=== PATIENT | female | born 1995 | race Caucasian/White ===

== ENCOUNTER 2016-11-20 15:59 | Emergency (ER) | payer MEDICAID ==
--- NOTE | 2016-11-20 18:20 | ERPHSYRPT ---
- History of Present Illness Time Seen by Provider: 11/20/16 18:00 Source: patient, family, old records Patient Subjective Stated Complaint: PT STATES SHE WAS SEEN AT THIS HOSPITAL ON 11/18/16 AND TREATED FOR ABDOMINAL PAIN AND SENT HOME WITH JOSEPH, WHICH SHE SAYS SHE HAS RAN OUT. PT STATES "I WAS KICKED OUT OF [facility] TODAY, BECAUSE I AM ALLERGIC TO REGLAN AND NSAIDS". PT STATES [facility] DID A PELVIC EXAM TODAY AND TOLD HER HER IUD WAS IN THE CORRECT PLACE. PT STATES SHE IS HAVING PAIN FROM HER IUD. PT STATES I DO NOT WANT [facility] TO KNOW I WAS HERE SO PLEASE DO NOT CALL AND GET MY RECORDS. PT STATES " I HAVE NOT SLEPT OR ATE FOR 24 HOURS." Triage Nursing Assessment: PT PINK,WARM, DRY. PT SOBBING. ABDOMEN OBESE. ABDOMEN SOFT TENDER OR PELVIS. STATES SHE IS CHANGING A PAD EVERY 2 HOURS. PT CRYING WET TEARS. MUCUS MEMBRANES MOIST. Physician History: C/O vaginal bleeding and recent UTI after IUD inserted 2 weeks ago. Out of pain meds and wants more. Pt. wants us to remove IUD, which I have told her is inappropriate and must be F/U with [employer]. Timing/Duration: week(s) (2) Activites at Onset: none Quality: cramping Onset Location: pelvic pain Pain Radiation: none Severity of Pain-Max: severe Severity of Pain-Current: severe Prior abdominal problems: similar symptoms Sexual intercourse history: non-contributory Modifying Factors: Improves With: other (IUD ) Associated Symptoms: vomiting Allergies/Adverse Reactions: metoclopramide [From Reglan] Allergy (Verified 11/20/16 17:29) Vomiting NSAIDS (Non-Steroidal Anti-Inflamma Allergy (Verified 11/20/16 17:29) anaphylaxis tramadol Allergy (Verified 11/20/16 17:29) seizures Hx Tetanus, Diphtheria Vaccination/Date Given: Yes (UP TO DATE) Hx Influenza Vaccination/Date Given: No Hx Pneumococcal Vaccination/Date Given: No - Review of Systems Constitutional: No Symptoms Eyes: No Symptoms Ears, Nose, & Throat: No Symptoms Respiratory: No Symptoms Cardiac: No Symptoms Abdominal/Gastrointestinal: Abdominal Pain, Vomiting Genitourinary Symptoms: Vaginal Bleeding Musculoskeletal: No Symptoms Skin: No Symptoms Neurological: No Symptoms Psychological: No Symptoms Endocrine: No Symptoms Hematologic/Lymphatic: No Symptoms Immunological/Allergic: No Symptoms - Past Medical History Pertinent Past Medical History: Yes Psycho-Social History: Other Female Reproductive Disorders: Endometriosis 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, PTSD - Past Surgical History Past Surgical History: Yes Gastrointestinal: Appendectomy Other Surgical History: laparoscopy x 4 for 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 - Social History Smoking Status: Never smoker Exposure to second hand smoke: No Drug Use: none Patient Lives Alone: No - Female History Hx Last Menstrual Period: NOW - Nursing Vital Signs Nursing Vital Signs: Initial Vital Signs Temperature 98.1 F Temperature Source Oral Pulse Rate 73 Respiratory Rate 18 Blood Pressure 116/70 Pain Intensity 10 - Physical Exam General Appearance: moderate distress Eye Exam: eyes nml inspection, other (tearful) Ears, Nose, Throat Exam: normal ENT inspection, pharynx normal Neck Exam: normal inspection, non-tender, supple, full range of motion Respiratory Exam: normal breath sounds, lungs clear Cardiovascular Exam: regular rate/rhythm, normal heart sounds, normal peripheral pulses Gastrointestinal/Abdomen Exam: soft, normal bowel sounds Back Exam: normal inspection Extremity Exam: normal inspection, normal range of motion, pelvis stable Neurologic Exam: alert, oriented x 3, depressed mood/affect Skin Exam: normal color, warm, dry SpO2 Interpretation: normal SpO2: 97 Oxygen Delivery: Room Air - Course Nursing assessment & vital signs reviewed: Yes Ordered Tests: Active Orders 24 hr Category Date Time Status IV Insertion STAT Care 11/20/16 17:36 Active CBC W DIFF Stat Lab 11/20/16 18:00 Completed CMP Stat Lab 11/20/16 18:00 Completed HCG,QUALITATIVE URINE Stat Lab 11/20/16 18:38 Completed UA W/RFX UR CULTURE Stat Lab 11/20/16 18:38 Received Medication Summary Discontinued Medications Generic Name Dose Route Start Last Admin Trade Name Jhonatan PRN Reason Stop Dose Admin Hydromorphone HCl 0.5 mg 11/20/16 18:30 11/20/16 18:37 Dilaudid 1 Mg/Ml Injection SQ 11/20/16 18:31 0.5 mg STAT ONE Administration Hydromorphone HCl Confirm 11/20/16 18:35 Dilaudid 1 Mg/Ml Injection Administered 11/20/16 18:36 Dose 1 mg .ROUTE .STK-MED ONE Ondansetron HCl 4 mg 11/20/16 18:53 Zofran 4 Mg/2 Ml Vial IV 11/20/16 18:54 STAT ONE Lab/Rad Data: Laboratory Result Diagrams 11/20/16 18:00 11/20/16 18:00 Laboratory Results 11/20/16 11/20/16 11/20/16 Range/Units 18:38 18:00 18:00 WBC 7.1 (4.0-10.5) K/mm3 RBC 4.57 (4.1-5.4) M/mm3 Hgb 13.2 (12.0-16.0) gm/dl Hct 41.3 (35-47) % MCV 90.4 (78-100) fl MCH 28.9 (26-32) pg MCHC 32.0 (32-36) g/dl RDW 13.5 (11.5-14.0) % Plt Count 407 (150-450) K/mm3 MPV 10.2 H (6-9.5) fl Gran % 66.8 H (36.0-66.0) % Lymphocytes % 20.9 L (24.0-44.0) % Monocytes % 12.1 H (0.0-12.0) % Eosinophils % 0.1 (0.00-5.0) % Basophils % 0.1 (0.0-0.4) % Basophils # 0.01 (0-0.4) Sodium 140 (136-145) mEq/L Potassium 4.1 (3.5-5.1) mEq/L Chloride 104 (98-107) mEq/L Carbon Dioxide 22.6 (21-32) mEq/L Anion Gap 17.9 H (5-15) MEQ/L BUN 10 (9-20) mg/dL Creatinine 0.81 (0.55-1.30) mg/dl Estimated GFR > 60 ML/MIN Glucose 97 (70-110) MG/DL Calcium 9.4 (8.5-10.1) mg/dL Total Bilirubin 0.3 (0.2-1.0) mg/dL AST 24 (15-37) U/L ALT 48 (12-78) U/L Alkaline Phosphatase 88 (46-116) U/L Serum Total Protein 8.8 H (6.4-8.2) gm/dL Albumin 4.3 (3.4-5.0) g/dL Urine HCG, Qual NEGATIVE (Negative) - Progress Progress: improved Air Movement: good Blood Culture(s) Obtained: No Antibiotics given: No Counseled pt/family regarding: diagnosis, need for follow-up (with [employer] for IUD removal and further pain medicines. ) - Departure Time of Disposition: 18:30 Departure Disposition: Home Clinical Impression: Pelvic pain, Dysmenorrhea Condition: Stable Critical Care Time: No Referrals: DOCTOR,NO FAMILY [Primary Care Provider] -
[2016-11-20 18:22] LABS: BASOPHIL % 0.1 % (0.0-0.4); Eosinophil % 0.1 % (0.00-5.0); Granulocytes % 66.8 % (36.0-66.0); Lymphocytes % 20.9 % (24.0-44.0); Mean Cell Volume 90.4 fl (78-100); Mean Corpuscular Hemoglobin 28.9 pg (26-32); Mean Platelet Volume 10.2 fl (6-9.5); Monocytes % 12.1 % (0.0-12.0); Platelet Count 407 K/mm3 (150-450); Red Blood Count 4.57 M/mm3 (4.1-5.4); Red Cell Distribution Width 13.5 % (11.5-14.0); White Blood Count 7.1 K/mm3 (4.0-10.5)
[2016-11-20] MEDS ORDERED: DILAUDID 1 MG/ML INJECTION SQ ONE (18:30)
[2016-11-20 18:34] VITALS: PULSE 73
[2016-11-20] MEDS ORDERED: DILAUDID 1 MG/ML INJECTION ONE (18:35)
[2016-11-20 18:42] LABS: ALBUMIN 4.3 g/dL (3.4-5.0); ALKALINE PHOSPHATASE 88 U/L (46-116); ANION GAP 17.9 MEQ/L (5-15); BILIRUBIN,TOTAL 0.3 mg/dL (0.2-1.0); BLOOD UREA NITROGEN 10 mg/dL (9-20); CHLORIDE 104 mEq/L (98-107); Carbon Dioxide 22.6 mEq/L (21-32); Glucose 97 MG/DL (70-110); Potassium 4.1 mEq/L (3.5-5.1); SGOT/AST 24 U/L (15-37); SGPT/ALT 48 U/L (12-78); SODIUM 140 mEq/L (136-145); Total Protein 8.8 gm/dL (6.4-8.2)
[2016-11-20] MEDS ORDERED: Zofran 4 MG/2 ML VIAL IV ONE (18:53)
[2016-11-20] MEDS ORDERED: Zofran 4 MG/2 ML VIAL ONE (18:56)
[2016-11-20 19:03] LABS: Collection Type CATH
[2016-11-20 19:04] LABS: Bacteria FEW /HPF (NEGATIVE); COMPLETE URINE MICROSCOPIC? YES; Epithelial Cells MODERATE /HPF (FEW); Ph 5.5 (5-6); WBC 0-2 /HPF (0-5)
[2016-11-20 19:06] LABS: ADD URINE CULTURE? YES (NO)
[2016-11-20 19:13] VITALS: BP 119/70; O2SAT 100
== END 2016-11-20 19:13 | disposition home or self-care (01) ==
LOC: ED 15:59
DX: R10.2 Pelvic and perineal pain (principal); N94.6 Dysmenorrhea, unspecified
CPT/HCPCS: 36000; 36415; 80053; 81000; 84703; 85025; 87086; 96372; 96374; 99283; J1170; J2405; P9612

== ENCOUNTER 2016-11-28 22:33 | Emergency (ER) | payer MEDICAID ==
[2016-11-28] MEDS ORDERED: Zofran 4 MG/2 ML VIAL IV ONE (23:19)
[2016-11-28] MEDS ORDERED: Sodium Chloride 0.9% 1000 ML 1,000 ML IV STA (23:19)
--- NOTE | 2016-11-28 23:28 | ERPHSYRPT ---
- History of Present Illness Time Seen by Provider: 11/28/16 23:10 Source: patient Exam Limitations: clinical condition Patient Subjective Stated Complaint: pt has abd pain and vomiting 4-5 times today -co vag bleeding changing pads 5-6 today -pt states she had a laparoscopy and mirena placed on nov 08 and it caused her pain and bleeding until it was removed saturday -pt was driving to hospital but had to stop and call the ambulance because she was lightheaded -she had norco but it doesn't control pain and make her sick. 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 PATIENT HAD MIRENA INSERTION NOV 08, 2016, DEVELOPED ABDOMINAL PAIN WITH VAGINAL BLEEDING DAILY. PATIENT EVALUATED AT [facility] Oct2015. AND Nov2016. EVALUATED HERE AT [facility] Oct, Nov. Timing/Duration: week(s) Activites at Onset: none Quality: stabbing Onset Location: suprapubic, pelvic pain Pain Radiation: none Severity of Pain-Max: severe Severity of Pain-Current: severe Prior abdominal problems: similar symptoms (HISTORY OF ENDOMETRIOSIS) Modifying Factors: Improves With: movement Associated Symptoms: abdominal pain Allergies/Adverse Reactions: metoclopramide [From Reglan] Allergy (Verified 11/28/16 23:12) Vomiting NSAIDS (Non-Steroidal Anti-Inflamma Allergy (Verified 11/28/16 23:12) anaphylaxis tramadol Allergy (Verified 11/28/16 23:12) seizures Hx Tetanus, Diphtheria Vaccination/Date Given: Yes (UP TO DATE) Hx Influenza Vaccination/Date Given: Yes Hx Pneumococcal Vaccination/Date Given: No - Review of Systems Constitutional: No Fever, No Chills Eyes: No Symptoms Ears, Nose, & Throat: No Symptoms Respiratory: No Symptoms, No Cough, No Dyspnea Cardiac: No Symptoms, No Chest Pain, No Edema, No Syncope Abdominal/Gastrointestinal: No Abdominal Pain, No Nausea, No Vomiting, No Diarrhea Genitourinary Symptoms: Vaginal Bleeding, No Dysuria Musculoskeletal: No Back Pain, No Neck Pain Skin: No Rash Neurological: No Dizziness, No Focal Weakness, No Sensory Changes Psychological: No Symptoms Endocrine: No Symptoms All Other Systems: Reviewed and Negative - Past Medical History Pertinent Past Medical History: Yes Psycho-Social History: Other Female Reproductive Disorders: Endometriosis 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, 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 with leslie gonzales 06/20/2016 - Past Surgical History Past Surgical History: Yes Gastrointestinal: Appendectomy Other Surgical History: laparoscopy x 4 for 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 last one nov 08 - Social History Smoking Status: Never smoker Exposure to second hand smoke: No Drug Use: none Patient Lives Alone: No - Female History Hx Last Menstrual Period: present - Nursing Vital Signs Nursing Vital Signs: Initial Vital Signs Temperature 98.8 F Temperature Source Oral Pulse Rate 80 Respiratory Rate 16 Blood Pressure 140/90 Pain Intensity 8 - Physical Exam General Appearance: no apparent distress, alert Eye Exam: PERRL/EOMI, eyes nml inspection Ears, Nose, Throat Exam: normal ENT inspection, TMs normal, pharynx normal, moist mucous membranes Neck Exam: normal inspection, non-tender, supple, full range of motion Respiratory Exam: normal breath sounds, lungs clear, No respiratory distress Cardiovascular Exam: regular rate/rhythm, normal heart sounds, normal peripheral pulses Gastrointestinal/Abdomen Exam: soft, normal bowel sounds, tenderness ( SUPRAPUBIC TENDERNESS), No mass Pelvic Exam: normal external exam, cervical motion tenderness (NO ACTIVE BLEEDING IN VAGINAL VAULT, MINIMAL ADNEXAL TENDERNESS) Back Exam: normal inspection, normal range of motion, No CVA tenderness, No vertebral tenderness Extremity Exam: normal inspection, normal range of motion, pelvis stable Neurologic Exam: alert, oriented x 3, cooperative, patroller II-XII nml as tested, normal mood/affect, sensation nml, No motor deficits Skin Exam: normal color, warm, dry Lymphatic Exam: No adenopathy SpO2 Interpretation: normal SpO2: 100 Oxygen Delivery: Room Air - CT Exams Abdomen/Pelvis CT Interpretation: Tele-radiologist Report (NO ACUTE FINDINGS, S/P APPENDECTOMY , NO FREE AIR NO FLUID COLLECTION) Ordered Tests: Active Orders 24 hr Category Date Time Status ABDOMEN AND PELVIS W CONTRAST [CT] Stat Exams 11/28/16 23:20 Taken BMP Stat Lab 11/28/16 23:45 Completed CBC W DIFF Stat Lab 11/28/16 23:45 Completed HCG,QUALITATIVE URINE Stat Lab 11/28/16 23:55 Completed PT INR [PROTIME WITH INR] Stat Lab 11/28/16 23:45 Completed UA W/ MICROSCOPIC Stat Lab 11/28/16 23:55 Completed Wet Prep Stat Lab 11/29/16 00:45 Completed Medication Summary Discontinued Medications Generic Name Dose Route Start Last Admin Trade Name Jhonatan PRN Reason Stop Dose Admin Hydromorphone HCl 2 mg 11/28/16 23:19 11/28/16 23:58 Dilaudid 1 Mg/Ml Injection IV 11/28/16 23:20 1 mg STAT ONE Administration Hydromorphone HCl Confirm 11/28/16 23:43 Dilaudid 1 Mg/Ml Injection Administered 11/28/16 23:44 Dose 1 mg .ROUTE .STK-MED ONE Hydromorphone HCl Confirm 11/28/16 23:57 Dilaudid 1 Mg/Ml Injection Administered 11/28/16 23:58 Dose 1 mg .ROUTE .STK-MED ONE Sodium Chloride 1,000 mls @ 999 mls/hr 11/28/16 23:19 11/28/16 23:45 Sodium Chloride 0.9% 1000 Ml IV 11/29/16 00:19 999 mls/hr .Q1H1M STA Administration Sodium Chloride Confirm 11/28/16 23:43 Sodium Chloride 0.9% 1000 Ml Administered 11/28/16 23:44 Dose 1,000 mls @ ud .ROUTE .STK-MED ONE Meperidine HCl 25 mg 11/29/16 02:28 11/29/16 02:34 Demerol 25mg Syringe IM 11/29/16 02:29 25 mg STAT ONE Administration Meperidine HCl Confirm 11/29/16 02:29 Demerol 25mg Syringe Administered 11/29/16 02:30 Dose 25 mg .ROUTE .STK-MED ONE Ondansetron HCl 4 mg 11/28/16 23:19 11/28/16 23:45 Zofran 4 Mg/2 Ml Vial IV 11/28/16 23:20 4 mg STAT ONE Administration Ondansetron HCl Confirm 11/28/16 23:43 Zofran 4 Mg/2 Ml Vial Administered 11/28/16 23:44 Dose 4 mg .ROUTE .STK-MED ONE Ondansetron HCl 4 mg 11/29/16 00:26 11/29/16 00:29 Zofran 4 Mg/2 Ml Vial IV 11/29/16 00:27 4 mg STAT ONE Administration Ondansetron HCl Confirm 11/29/16 00:27 Zofran 4 Mg/2 Ml Vial Administered 11/29/16 00:28 Dose 4 mg .ROUTE .STK-MED ONE Promethazine HCl 25 mg 11/29/16 02:00 11/29/16 02:04 Phenergan 25 Mg Inj IM 11/29/16 02:01 25 mg STAT ONE Administration Promethazine HCl Confirm 11/29/16 02:02 Phenergan 25 Mg Inj Administered 11/29/16 02:03 Dose 25 mg .ROUTE .STK-MED ONE Lab/Rad Data: Laboratory Result Diagrams 11/28/16 23:45 11/28/16 23:45 Laboratory Results 11/29/16 11/29/16 11/28/16 Range/Units 00:45 00:45 23:55 WBC (4.0-10.5) K/mm3 RBC (4.1-5.4) M/mm3 Hgb (12.0-16.0) gm/dl Hct (35-47) % MCV (78-100) fl MCH (26-32) pg MCHC (32-36) g/dl RDW (11.5-14.0) % Plt Count (150-450) K/mm3 MPV (6-9.5) fl Gran % (36.0-66.0) % Lymphocytes % (24.0-44.0) % Monocytes % (0.0-12.0) % Eosinophils % (0.00-5.0) % Basophils % (0.0-0.4) % Basophils # (0-0.4) INR (0.8-3.0) Sodium (136-145) mEq/L Potassium (3.5-5.1) mEq/L Chloride (98-107) mEq/L Carbon Dioxide (21-32) mEq/L Anion Gap (5-15) MEQ/L BUN (9-20) mg/dL Creatinine (0.55-1.30) mg/dl Estimated GFR ML/MIN Glucose (70-110) MG/DL Calcium (8.5-10.1) mg/dL Ur Collection Type Urine Color (YELLOW) Urine Appearance (CLEAR) Urine pH (5-6) Ur Specific [place] (1.005-1.025) Urine Protein (Negative) Urine Glucose (UA) (NEGATIVE) mg/dL Urine Ketones (NEGATIVE) Urine Nitrite (NEGATIVE) Urine Bilirubin (NEGATIVE) Urine Urobilinogen (0-1) mg/dL Urine WBC (Auto) (NEGATIVE) Urine RBC (Auto) (0-5) Radu/ul Ur Epithelial Cells (FEW) /HPF Urine Mucus (NEGATIVE) /HPF Urine HCG, Qual NEGATIVE (Negative) WBC (Wet Prep) Rare RBC (Wet Prep) Few Epi Cells (Wet Prep) Few Bacteria (Wet Prep) Few Clue Cells (Wet Prep) None Seen Trichomonas (Wet Prep) None Seen Budding Yeast (Wet Prp) None Seen Chlamydia DNA (LCR) NEGATIVE N.gonorrhoeae Ampl DNA NEGATIVE Specimen Received 11/28/16 11/28/16 11/28/16 Range/Units 23:55 23:45 23:45 WBC (4.0-10.5) K/mm3 RBC (4.1-5.4) M/mm3 Hgb (12.0-16.0) gm/dl Hct (35-47) % MCV (78-100) fl MCH (26-32) pg MCHC (32-36) g/dl RDW (11.5-14.0) % Plt Count (150-450) K/mm3 MPV (6-9.5) fl Gran % (36.0-66.0) % Lymphocytes % (24.0-44.0) % Monocytes % (0.0-12.0) % Eosinophils % (0.00-5.0) % Basophils % (0.0-0.4) % Basophils # (0-0.4) INR 1.06 (0.8-3.0) Sodium 137 (136-145) mEq/L Potassium 3.5 (3.5-5.1) mEq/L Chloride 106 (98-107) mEq/L Carbon Dioxide 19.3 L (21-32) mEq/L Anion Gap 14.9 (5-15) MEQ/L BUN 12 (9-20) mg/dL Creatinine 0.64 (0.55-1.30) mg/dl Estimated GFR > 60 ML/MIN Glucose 106 (70-110) MG/DL Calcium 8.8 (8.5-10.1) mg/dL Ur Collection Type CATH Urine Color YELLOW (YELLOW) Urine Appearance CLEAR (CLEAR) Urine pH 5.5 (5-6) Ur Specific [place] >=1.030 (1.005-1.025) Urine Protein 30 (Negative) Urine Glucose (UA) NEGATIVE (NEGATIVE) mg/dL Urine Ketones NEGATIVE (NEGATIVE) Urine Nitrite NEGATIVE (NEGATIVE) Urine Bilirubin NEGATIVE (NEGATIVE) Urine Urobilinogen 0.2 (0-1) mg/dL Urine WBC (Auto) NEGATIVE (NEGATIVE) Urine RBC (Auto) NEGATIVE (0-5) Radu/ul Ur Epithelial Cells FEW (FEW) /HPF Urine Mucus SLIGHT (NEGATIVE) /HPF Urine HCG, Qual (Negative) WBC (Wet Prep) RBC (Wet Prep) Epi Cells (Wet Prep) Bacteria (Wet Prep) Clue Cells (Wet Prep) Trichomonas (Wet Prep) Budding Yeast (Wet Prp) Chlamydia DNA (LCR) N.gonorrhoeae Ampl DNA Specimen Received 11/28/16:2350 11/28/16 Range/Units 23:45 WBC 5.9 (4.0-10.5) K/mm3 RBC 4.35 (4.1-5.4) M/mm3 Hgb 12.7 (12.0-16.0) gm/dl Hct 39.9 (35-47) % MCV 91.7 (78-100) fl MCH 29.2 (26-32) pg MCHC 31.8 L (32-36) g/dl RDW 13.9 (11.5-14.0) % Plt Count 298 (150-450) K/mm3 MPV 11.5 H (6-9.5) fl Gran % 56.3 (36.0-66.0) % Lymphocytes % 31.2 (24.0-44.0) % Monocytes % 11.5 (0.0-12.0) % Eosinophils % 0.5 (0.00-5.0) % Basophils % 0.5 (0.0-0.4) % Basophils # 0.03 (0-0.4) INR (0.8-3.0) Sodium (136-145) mEq/L Potassium (3.5-5.1) mEq/L Chloride (98-107) mEq/L Carbon Dioxide (21-32) mEq/L Anion Gap (5-15) MEQ/L BUN (9-20) mg/dL Creatinine (0.55-1.30) mg/dl Estimated GFR ML/MIN Glucose (70-110) MG/DL Calcium (8.5-10.1) mg/dL Ur Collection Type Urine Color (YELLOW) Urine Appearance (CLEAR) Urine pH (5-6) Ur Specific [place] (1.005-1.025) Urine Protein (Negative) Urine Glucose (UA) (NEGATIVE) mg/dL Urine Ketones (NEGATIVE) Urine Nitrite (NEGATIVE) Urine Bilirubin (NEGATIVE) Urine Urobilinogen (0-1) mg/dL Urine WBC (Auto) (NEGATIVE) Urine RBC (Auto) (0-5) Radu/ul Ur Epithelial Cells (FEW) /HPF Urine Mucus (NEGATIVE) /HPF Urine HCG, Qual (Negative) WBC (Wet Prep) RBC (Wet Prep) Epi Cells (Wet Prep) Bacteria (Wet Prep) Clue Cells (Wet Prep) Trichomonas (Wet Prep) Budding Yeast (Wet Prp) Chlamydia DNA (LCR) N.gonorrhoeae Ampl DNA Specimen Received - Progress Progress: improved Progress Note: 11/28/16 11/28/16 23:43 PATIENT GIVEN IV NORMAL SALING 1 LITER BOLUS, ZOFRAN 4MG, DILAUDID 2MG IV, STATES ONLY MODERATELY CONTROLLED, PHENERGAN 25MG/DEMEROL 25MG IM 11/29/16 02:34 Counseled pt/family regarding: lab results, diagnosis - Departure Time of Disposition: 23:45 Departure Disposition: Home Clinical Impression: CHRONIC PELVIC PAIN, ENDOMETRIOSIS Condition: Stable Critical Care Time: No Referrals: DOCTOR,NO FAMILY [Primary Care Provider] - Additional Instructions: CONSULT YOUR FAMILY PHYSICIAN FOR EVALUATION THIS WEEK. Prescriptions: Promethazine HCl 25 mg Supp [Phenergan 25 mg Supp] 25 mg RC Q4H PRN PRN # [id number] supp.rect PRN Reason: Nausea
[2016-11-28] MEDS ORDERED: DILAUDID 1 MG/ML INJECTION ONE ×2 (23:43→23:57)
[2016-11-28] MEDS ORDERED: Sodium Chloride 0.9% 1000 ML 1,000 ML ONE (23:43)
[2016-11-28] MEDS ORDERED: Zofran 4 MG/2 ML VIAL ONE (23:43)
[2016-11-28] MEDS: DILAUDID 1 MG/ML INJECTION IV ONE ×2 (23:45→23:58)
[2016-11-29] LABS: BASOPHIL % 0.5 % (0.0-0.4); Eosinophil % 0.5 % (0.00-5.0); Granulocytes % 56.3 % (36.0-66.0); Lymphocytes % 31.2 % (24.0-44.0); Mean Cell Volume 91.7 fl (78-100); Mean Corpuscular Hemoglobin 29.2 pg (26-32); Mean Platelet Volume 11.5 fl (6-9.5); Monocytes % 11.5 % (0.0-12.0); Platelet Count 298 K/mm3 (150-450); Red Blood Count 4.35 M/mm3 (4.1-5.4); Red Cell Distribution Width 13.9 % (11.5-14.0); White Blood Count 5.9 K/mm3 (4.0-10.5)
[2016-11-29 00:03] LABS: COMPLETE URINE MICROSCOPIC? YES; Collection Type CATH; Ph 5.5 (5-6)
[2016-11-29 00:04] LABS: Epithelial Cells FEW /HPF (FEW); Mucus SLIGHT /HPF (NEGATIVE)
[2016-11-29 00:10] LABS: INR 1.06 (0.8-3.0); PROTIME 11.8 SECONDS (9.95-12.35)
[2016-11-29 00:13] LABS: ANION GAP 14.9 MEQ/L (5-15); BLOOD UREA NITROGEN 12 mg/dL (9-20); CHLORIDE 106 mEq/L (98-107); Carbon Dioxide 19.3 mEq/L (21-32); Glucose 106 MG/DL (70-110); Potassium 3.5 mEq/L (3.5-5.1); SODIUM 137 mEq/L (136-145)
[2016-11-29] MEDS ORDERED: Zofran 4 MG/2 ML VIAL IV ONE (00:26)
[2016-11-29] MEDS ORDERED: Zofran 4 MG/2 ML VIAL ONE (00:27)
[2016-11-29 01:08] LABS: Bacteria Few; Clue Cells None Seen; Trichomonas None Seen; Yeast None Seen
[2016-11-29] MEDS ORDERED: Phenergan 25 MG INJ IM ONE (02:00)
[2016-11-29] MEDS ORDERED: Phenergan 25 MG INJ ONE (02:02)
[2016-11-29 02:24] LABS: CHLAMYDIA DNA NEGATIVE
[2016-11-29] MEDS ORDERED: DEMEROL 25MG SYRINGE IM ONE (02:28)
[2016-11-29] MEDS ORDERED: DEMEROL 25MG SYRINGE ONE (02:29)
[2016-11-29 03:03] VITALS: BP 114/74; PULSE 72; O2SAT 98
--- NOTE | 2016-11-30 09:32 | XRAY ---
Indication: Abdominal pain, nausea, vomiting, diarrhea, and vaginal bleeding. Status post IUD removal November 26, 2016. Multiple contiguous axial images obtained through the abdomen and pelvis using 80 cc Isovue 370 contrast. Comparison: None Study is degraded by respiration artifact. Right lung base and distal paraesophageal calcified granulomas. No infiltrate, consolidation, or effusion. Heart is not enlarged. Noncontrasted stomach and bowel loops appear nonobstructed. There is moderate diffuse scattered colonic fecal debris throughout. Previous appendectomy. 1.5 cm left ovary cyst. No free fluid/air. Remaining liver, gallbladder, pancreas, spleen, adrenal glands, kidneys, ureters, bladder, uterus, and aorta appear normal in CT appearance and attenuation. No pathologic retroperitoneal lymphadenopathy. Osseous structures intact. Impression: Respiration artifact. Fecal stasis without obstruction. 1.5 cm dominant left ovary cyst. No acute intra-abdominal/pelvic abnormalities. Comment: Preliminary interpretation was made by C. No critical discrepancy. CT DI is 19.53
== END 2016-11-29 03:11 | disposition home or self-care (01) ==
LOC: ED 22:33
DX: R10.2 Pelvic and perineal pain (principal); N80.9 Endometriosis, unspecified; R11.2 Nausea with vomiting, unspecified; R42 Dizziness and giddiness
CPT/HCPCS: 36415; 74177; 80048; 81000; 81002; 84703; 85025; 85610; 87210; 87490; 87590; 96360; 96372; 96374; 96376; 99284; J1170; J2175; J2405; J2550; P9612

== ENCOUNTER 2016-12-01 01:32 | Emergency (ER) | payer MEDICAID ==
[2016-12-01] MEDS ORDERED: Sodium Chloride 0.9% 1000 ML 1,000 ML IV STA (01:55)
[2016-12-01] MEDS ORDERED: Zofran 4 MG/2 ML VIAL IV ONE (01:55)
[2016-12-01] MEDS ORDERED: MORPHINE SULFATE 2 MG INJ IV ONE (01:55)
--- NOTE | 2016-12-01 02:09 | ERPHSYRPT ---
- History of Present Illness Time Seen by Provider: 12/01/16 01:45 Source: patient Exam Limitations: no limitations Patient Subjective Stated Complaint: pt states she woke up with pain in her lt back Triage Nursing Assessment: pt alert and oriented, answers questions approp. skin pink warm and dry. respirations nonlabored with lungs cta. pt c/o lt side back pain, no radiation to legs. denies numbness or tingling in extremities. urine clear and yellow. Physician History: 21 y/o female comes to the ER with sudden onset left flank pain that woke her up from her sleep this morning. Pt describes the pain as sharp, constant, 9/10 and pt has not taken any pain meds. Pt also admits to decrease urine output but has been having dysuria lately. Pt is just coming off a UTI. Pt denies any fever , chills, abdominal pain, vomiting, diarrhea, constipation or bloody urine. Timing/Duration: today Quality: sharp Associated Symptoms: denies symptoms, nausea Previous symptoms: no prior history Allergies/Adverse Reactions: metoclopramide [From Reglan] Allergy (Verified 12/01/16 01:49) Vomiting NSAIDS (Non-Steroidal Anti-Inflamma Allergy (Verified 12/01/16 01:49) anaphylaxis tramadol Allergy (Verified 12/01/16 01:49) seizures Home Medications: No Home Meds 12/01/16 [History] Hx Tetanus, Diphtheria Vaccination/Date Given: Yes (UP TO DATE) Hx Influenza Vaccination/Date Given: Yes Hx Pneumococcal Vaccination/Date Given: No Immunizations Up to Date: Yes - Review of Systems Constitutional: No Fever, No Chills Eyes: No Symptoms Ears, Nose, & Throat: No Symptoms Respiratory: No Cough, No Dyspnea Cardiac: No Chest Pain, No Edema, No Syncope Abdominal/Gastrointestinal: Nausea, No Abdominal Pain, No Vomiting, No Diarrhea Genitourinary Symptoms: Dysuria, Frequency Musculoskeletal: Back Pain, No Neck Pain Skin: No Rash Neurological: No Dizziness, No Focal Weakness, No Sensory Changes Psychological: No Symptoms Endocrine: No Symptoms All Other Systems: Reviewed and Negative - Past Medical History Pertinent Past Medical History: Yes History: Other Psycho-Social History: Other Female Reproductive Disorders: Endometriosis 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, 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 with leslie gonzales 06/20/2016 - Past Surgical History Past Surgical History: Yes Gastrointestinal: Appendectomy Other Surgical History: laparoscopy x 4 for 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 last one nov 08, 2016 - Social History Smoking Status: Never smoker Exposure to second hand smoke: No Drug Use: none Patient Lives Alone: No - Female History Hx Last Menstrual Period: ended yesterday, lasted 3 weeks - Nursing Vital Signs Temperature: 97.8 F Temperature Source: Oral Pulse Rate: 86 Respiratory Rate: 20 Blood Pressure: 161/85 Pain Intensity: 8 - Physical Exam General Appearance: moderate distress, alert, anxiety Eye Exam: PERRL/EOMI, eyes nml inspection Neck Exam: normal inspection, non-tender, supple, full range of motion, No meningismus, No midline tenderness Respiratory Exam: normal breath sounds, lungs clear, No respiratory distress Cardiovascular Exam: regular rate/rhythm, normal heart sounds Gastrointestinal Exam: soft, normal bowel sounds, No tenderness, No mass Back Exam: CVA tenderness Extremity Exam: normal inspection, normal range of motion, No calf tenderness, No pedal edema Neurologic Exam: alert, oriented x 3, cooperative, supervisor carton and can supply II-XII nml as tested, normal mood/affect, nml station & gait, sensation nml, No motor deficits Skin Exam: normal color, warm, dry, No rash SpO2: 100 Oxygen Delivery: Room Air Ordered Tests: Active Orders 24 hr Category Date Time Status IV Insertion STAT Care 12/01/16 01:55 Active ABDOMEN AND PELVIS W/0 CONTRAS [CT] Stat Exams 12/01/16 01:53 Taken CBCD [CBC W DIFF] Stat Lab 12/01/16 02:22 Completed CMP Stat Lab 12/01/16 02:22 Completed HCG QUALITATIVE,SERUM Stat Lab 12/01/16 02:22 Completed UA W/RFX UR CULTURE Stat Lab 12/01/16 02:22 Completed Medication Summary Discontinued Medications Generic Name Dose Route Start Last Admin Trade Name Freq PRN Reason Stop Dose Admin Sodium Chloride 1,000 mls @ 999 mls/hr 12/01/16 01:55 12/01/16 02:23 Sodium Chloride 0.9% 1000 Ml IV 12/01/16 02:55 999 mls/hr .Q1H1M STA Administration Sodium Chloride Confirm 12/01/16 02:22 Sodium Chloride 0.9% 1000 Ml Administered 12/01/16 02:23 Dose 1,000 mls @ ud .ROUTE .STK-MED ONE Morphine Sulfate 2 mg 12/01/16 01:55 12/01/16 02:23 Morphine Sulfate 2 Mg Inj IV 12/01/16 01:56 2 mg STAT ONE Administration Morphine Sulfate Confirm 12/01/16 02:22 Morphine Sulfate 2 Mg Inj Administered 12/01/16 02:23 Dose 2 mg .ROUTE .STK-MED ONE Ondansetron HCl 4 mg 12/01/16 01:55 12/01/16 02:23 Zofran 4 Mg/2 Ml Vial IV 12/01/16 01:56 4 mg STAT ONE Administration Ondansetron HCl Confirm 12/01/16 02:22 Zofran 4 Mg/2 Ml Vial Administered 12/01/16 02:23 Dose 4 mg .ROUTE .STK-MED ONE Lab/Rad Data: Laboratory Result Diagrams 12/01/16 02:22 12/01/16 02:22 Laboratory Results 12/01/16 12/01/16 12/01/16 Range/Units 02:22 02:22 02:22 WBC (4.0-10.5) K/mm3 RBC (4.1-5.4) M/mm3 Hgb (12.0-16.0) gm/dl Hct (35-47) % MCV (78-100) fl MCH (26-32) pg MCHC (32-36) g/dl RDW (11.5-14.0) % Plt Count (150-450) K/mm3 MPV (6-9.5) fl Gran % (36.0-66.0) % Lymphocytes % (24.0-44.0) % Monocytes % (0.0-12.0) % Eosinophils % (0.00-5.0) % Basophils % (0.0-0.4) % Basophils # (0-0.4) Sodium 142 (136-145) mEq/L Potassium 3.5 (3.5-5.1) mEq/L Chloride 107 (98-107) mEq/L Carbon Dioxide 23.5 (21-32) mEq/L Anion Gap 15.3 H (5-15) MEQ/L BUN 10 (9-20) mg/dL Creatinine 0.70 (0.55-1.30) mg/dl Estimated GFR > 60 ML/MIN Glucose 97 (70-110) MG/DL Calcium 8.9 (8.5-10.1) mg/dL Total Bilirubin 0.2 (0.2-1.0) mg/dL AST 18 (15-37) U/L ALT 25 (12-78) U/L Alkaline Phosphatase 74 (46-116) U/L Serum Total Protein 7.3 (6.4-8.2) gm/dL Albumin 3.8 (3.4-5.0) g/dL Serum , Qual NEGATIVE (Negative) Ur Collection Type CLEAN CATCH Urine Color YELLOW (YELLOW) Urine Appearance SLIGHTLY CLOUDY (CLEAR) Urine pH 5.5 (5-6) Ur Specific [place] 1.020 (1.005-1.025) Urine Protein NEGATIVE (Negative) Urine Glucose (UA) NEGATIVE (NEGATIVE) mg/dL Urine Ketones NEGATIVE (NEGATIVE) Urine Nitrite NEGATIVE (NEGATIVE) Urine Bilirubin NEGATIVE (NEGATIVE) Urine Urobilinogen 0.2 (0-1) mg/dL Urine WBC (Auto) NEGATIVE (NEGATIVE) Urine RBC (Auto) NEGATIVE (0-5) Radu/ul Specimen Received 12/01/16 0225 12/01/16 Range/Units 02:22 WBC 6.7 (4.0-10.5) K/mm3 RBC 4.09 L (4.1-5.4) M/mm3 Hgb 11.9 L (12.0-16.0) gm/dl Hct 37.0 (35-47) % MCV 90.5 (78-100) fl MCH 29.0 (26-32) pg MCHC 32.2 (32-36) g/dl RDW 14.1 H (11.5-14.0) % Plt Count 352 (150-450) K/mm3 MPV 10.2 H (6-9.5) fl Gran % 56.0 (36.0-66.0) % Lymphocytes % 32.1 (24.0-44.0) % Monocytes % 10.9 (0.0-12.0) % Eosinophils % 0.9 (0.00-5.0) % Basophils % 0.1 (0.0-0.4) % Basophils # 0.01 (0-0.4) Sodium (136-145) mEq/L Potassium (3.5-5.1) mEq/L Chloride (98-107) mEq/L Carbon Dioxide (21-32) mEq/L Anion Gap (5-15) MEQ/L BUN (9-20) mg/dL Creatinine (0.55-1.30) mg/dl Estimated GFR ML/MIN Glucose (70-110) MG/DL Calcium (8.5-10.1) mg/dL Total Bilirubin (0.2-1.0) mg/dL AST (15-37) U/L ALT (12-78) U/L Alkaline Phosphatase (46-116) U/L Serum Total Protein (6.4-8.2) gm/dL Albumin (3.4-5.0) g/dL Serum , Qual (Negative) Ur Collection Type Urine Color (YELLOW) Urine Appearance (CLEAR) Urine pH (5-6) Ur Specific [place] (1.005-1.025) Urine Protein (Negative) Urine Glucose (UA) (NEGATIVE) mg/dL Urine Ketones (NEGATIVE) Urine Nitrite (NEGATIVE) Urine Bilirubin (NEGATIVE) Urine Urobilinogen (0-1) mg/dL Urine WBC (Auto) (NEGATIVE) Urine RBC (Auto) (0-5) Radu/ul Specimen Received - Progress Progress: unchanged Progress Note: 12/01/16 04:[address] scan abd/pelvis is within normal limits. The UA is normal and the rest of the labs are normal. Pt has received 1 dose of morphine 2mg IV X 1 dose with no relief. Pt is crying in pain and is requesting stronger pain meds. Pt mentions she is stage IV 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 and that it has spread all over her pelvis. I will give the patient the benefit of the doubt and will give her one dose of dilaudid 1mg IV X 1 dose and she will be discharged home. I have discussed with the patient that I am concerned she may be developing an addiction to narcotics and her response was that, "maybe the 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 has spread to her kidneys." Pt will also need to F/U with her PCP regarding any additional chronic pain issues. - Departure Time of Disposition: 04:14 Departure Disposition: Home Clinical Impression: Flank pain, Chronic pain Condition: Stable Critical Care Time: No Instructions: Low Back Pain, Chronic Pain -- Adult Additional Instructions: Follow up with your primary care doctor for any additional chronic pain issues.
[2016-12-01] MEDS ORDERED: Zofran 4 MG/2 ML VIAL ONE (02:22)
[2016-12-01] MEDS ORDERED: MORPHINE SULFATE 2 MG INJ ONE (02:22)
[2016-12-01] MEDS ORDERED: Sodium Chloride 0.9% 1000 ML 1,000 ML ONE (02:22)
[2016-12-01 02:27] LABS: BASOPHIL % 0.1 % (0.0-0.4); Eosinophil % 0.9 % (0.00-5.0); Lymphocytes % 32.1 % (24.0-44.0); Mean Cell Volume 90.5 fl (78-100); Mean Platelet Volume 10.2 fl (6-9.5); Monocytes % 10.9 % (0.0-12.0); Platelet Count 352 K/mm3 (150-450); Red Blood Count 4.09 M/mm3 (4.1-5.4); Red Cell Distribution Width 14.1 % (11.5-14.0); White Blood Count 6.7 K/mm3 (4.0-10.5)
[2016-12-01 02:28] LABS: ADD URINE CULTURE? NO (NO); COMPLETE URINE MICROSCOPIC? NO; Collection Type CLEAN CATCH; Ph 5.5 (5-6)
[2016-12-01 03:06] LABS: ALBUMIN 3.8 g/dL (3.4-5.0); ALKALINE PHOSPHATASE 74 U/L (46-116); ANION GAP 15.3 MEQ/L (5-15); BILIRUBIN,TOTAL 0.2 mg/dL (0.2-1.0); BLOOD UREA NITROGEN 10 mg/dL (9-20); CHLORIDE 107 mEq/L (98-107); Carbon Dioxide 23.5 mEq/L (21-32); Glucose 97 MG/DL (70-110); Potassium 3.5 mEq/L (3.5-5.1); SGOT/AST 18 U/L (15-37); SGPT/ALT 25 U/L (12-78); SODIUM 142 mEq/L (136-145); Total Protein 7.3 gm/dL (6.4-8.2)
[2016-12-01] MEDS ORDERED: DILAUDID 1 MG/ML INJECTION IV ONE (04:08)
[2016-12-01] MEDS ORDERED: DILAUDID 1 MG/ML INJECTION ONE (04:11)
[2016-12-01 04:23] VITALS: O2SAT 99
[2016-12-01 05:00] VITALS: BP 133/87; PULSE 80
--- NOTE | 2016-12-01 08:42 | XRAY ---
Indication: Left flank pain with nausea and vomiting. History of renal stones. Multiple contiguous axial images obtained through the abdomen and pelvis without contrast using renal stone protocol. Comparison: November 29, 2016 Lung bases clear with stable right base and distal paraesophageal calcified granulomas. Heart is not enlarged. Again no renal calculus or evidence for obstructive uropathy in either system. There remains a few calcified splenic granulomas. Noncontrasted stomach and bowel loops are nonobstructed. Again moderate diffuse scattered colonic fecal debris throughout. Previous appendectomy. No free fluid/air. Remaining liver, gallbladder, pancreas, spleen, adrenal glands, kidneys, ureters, urinary bladder, uterus, ovaries, and aorta appear unremarkable for noncontrast exam. Impression: 1. Negative for renal calculus or evidence for obstructive uropathy. 2. Again fecal stasis without obstruction and evidence for old granulomatous disease. 3. No new or acute intra-abdominal/pelvic abnormalities on this noncontrast exam. Comment: Preliminary interpretation was made by [facility]. No discrepancy. CTDI is 23.67
== END 2016-12-01 04:50 | disposition home or self-care (01) ==
LOC: ED 01:32
DX: R10.9 Unspecified abdominal pain (principal); G89.29 Other chronic pain; R11.0 Nausea
CPT/HCPCS: 36000; 36415; 74176; 80053; 81000; 84703; 85025; 96360; 96374; 96375; 99283; J1170; J2270; J2405

== ENCOUNTER 2016-12-07 20:14 | Emergency (ER) | payer MEDICAID ==
[2016-12-07] MEDS ORDERED: Phenergan 25 MG INJ IM ONE (20:54)
[2016-12-07] MEDS ORDERED: Phenergan 25 MG INJ ONE (20:56)
--- NOTE | 2016-12-07 20:59 | ERPHSYRPT ---
- History of Present Illness Time Seen by Provider: 12/07/16 20:56 Historian: patient Exam Limitations: no limitations Patient Subjective Stated Complaint: Pt states she started having LLQ pain last night and started vomiting this morning. Pt had mirena removed a little over a week ago Triage Nursing Assessment: Pt alert and oriented x3. skin pink warm and dry. afebrile. bowel sounds present x4. abdomen soft and tender with palpation in the LLQ Physician History: Pt states she started having LLQ pain last night and started vomiting this morning. Pt had mirena removed a little over a week ago Patient is 21-year-old female has multiple ER visit to the emergency room including [facility] as well as [facility] for the same complaint and has underwent multiple times blood workup as well as the radiological testing without any significant findings. Patient Mirena was just removed approximately week ago. Timing/Duration: week(s) Quality: cramping Abdominal Pain Onset Location: LLQ Pain Radiation: no radiation Allergies/Adverse Reactions: metoclopramide [From Reglan] Allergy (Verified 12/07/16 20:23) Vomiting NSAIDS (Non-Steroidal Anti-Inflamma Allergy (Verified 12/07/16 20:23) anaphylaxis tramadol Allergy (Verified 12/07/16 20:23) seizures Home Medications: No Reportable Medications [No Reported Medications] 12/07/16 [History] Hx Tetanus, Diphtheria Vaccination/Date Given: Yes Hx Influenza Vaccination/Date Given: Yes Hx Pneumococcal Vaccination/Date Given: No - Review of Systems Constitutional: No Symptoms Eyes: No Symptoms Ears, Nose, & Throat: No Symptoms Respiratory: No Symptoms Cardiac: No Symptoms Abdominal/Gastrointestinal: Abdominal Pain, Nausea Genitourinary Symptoms: No Symptoms Musculoskeletal: No Symptoms Skin: No Symptoms - Past Medical History Pertinent Past Medical History: Yes History: Other Psycho-Social History: Other Female Reproductive Disorders: Endometriosis 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, 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 with mirena -del 06/20/2016 - Past Surgical History Past Surgical History: Yes Gastrointestinal: Appendectomy Other Surgical History: laparoscopy x 4 for 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 last one nov 08, 2016 - Social History Smoking Status: Never smoker Exposure to second hand smoke: No Drug Use: none Patient Lives Alone: No - Female History Hx Last Menstrual Period: 11/08/2016 - Nursing Vital Signs Nursing Vital Signs: Initial Vital Signs Temperature 98.3 F Temperature Source Oral Pulse Rate 63 Respiratory Rate 14 Blood Pressure [Right Arm] 129/91 Pain Intensity 8 - Physical Exam General Appearance: no apparent distress, alert Eye Exam: PERRL/EOMI, eyes nml inspection Ears, Nose, Throat Exam: normal ENT inspection, pharynx normal, moist mucous membranes Neck Exam: normal inspection, non-tender, supple, full range of motion Respiratory Exam: normal breath sounds, lungs clear, No respiratory distress Cardiovascular Exam: regular rate/rhythm, normal heart sounds Gastrointestinal/Abdomen Exam: soft, No tenderness, No mass Back Exam: normal inspection, normal range of motion, No CVA tenderness, No vertebral tenderness Extremity Exam: normal inspection, normal range of motion, pelvis stable Neurologic Exam: alert, oriented x 3, cooperative, normal mood/affect, nml cerebellar function, sensation nml, No motor deficits Skin Exam: normal color, warm, dry SpO2: 97 Oxygen Delivery: Room Air - Course Nursing assessment & vital signs reviewed: Yes Ordered Tests: Medication Summary Discontinued Medications Generic Name Dose Route Start Last Admin Trade Name Jhonatan PRN Reason Stop Dose Admin Promethazine HCl 25 mg 12/07/16 20:54 Phenergan 25 Mg Inj IM 12/07/16 20:55 STAT ONE - Progress Progress: improved Counseled pt/family regarding: diagnosis, need for follow-up - Departure Time of Disposition: 20:59 Departure Disposition: Home Clinical Impression: Dysmenorrhea, Pelvic pain Condition: Stable Critical Care Time: No Referrals: ALESSIA GLOVER [Primary Care Provider] - Instructions: Abdominal Pain-Adult
[2016-12-07 21:19] VITALS: BP 129/87; PULSE 78; O2SAT 98
== END 2016-12-07 21:18 | disposition home or self-care (01) ==
LOC: ED 20:14
DX: N94.6 Dysmenorrhea, unspecified (principal); R10.2 Pelvic and perineal pain
CPT/HCPCS: 96372; 99282; J2550

== ENCOUNTER 2016-12-12 01:50 | Emergency (ER) | payer MEDICAID ==
[2016-12-12 01:58] VITALS: BP 121/76; PULSE 88; O2SAT 100
--- NOTE | 2016-12-12 02:49 | ERPHSYRPT ---
- History of Present Illness Time Seen by Provider: 12/12/16 02:00 Source: patient Exam Limitations: clinical condition Patient Subjective Stated Complaint: REPORTS PARIETAL CORNELL ONSET SINCE SATURDAY NIGHT (4 DAYS) - DENIES OTHER SYMPTOMS Triage Nursing Assessment: AMBULATORY TO TREATMENT AREA - STEADY GAIT - MOVES ALL EXTREMITIES WITH EQUAL STRENGTH. ALERT/ORIENTED - UNPLEASANT AFFECT. SKIN PWD - NO RASH/INJURY. RESPS EASY - NON-LABORED Physician History: PATIENT WITH A HISTORY OF CHRONIC ABDOMINAL PAIN, ENDOMETROSIS COMPLAINS OF HEADACHE FOR THE PAST 4 DAYS. HAS ASSOCIATED PHOTOPHOBIA, NO RELIEF WITH TYLENOL OR FIORICET. THIS IS HER 6TH EMERGENCY ROOM VISIT AT [facility] S[facility]CE Oct AND HER 10TH EMERGENCY ROOM VISIT [facility], [facility] AND [facility]. PATIENT DENIES FEVER , NECK STIFFNESS, EMESIS. Timing/Duration: day(s) Quality: pressure Head Pain Location: frontal, temporal Severity of Pain-Max: moderate Severity of Pain-Current: moderate Recent Head Trauma: no recent headache/trauma Modifying Factors: Improves With: exposure to light Associated Symptoms: nausea/vomiting, sensitive to light Previous symptoms: no prior history Allergies/Adverse Reactions: metoclopramide [From Reglan] Allergy (Verified 12/12/16 01:58) Vomiting NSAIDS (Non-Steroidal Anti-Inflamma Allergy (Verified 12/12/16 01:58) anaphylaxis tramadol Allergy (Verified 12/12/16 01:58) seizures Home Medications: No Reportable Medications [No Reported Medications] 12/07/16 [History] Hx Tetanus, Diphtheria Vaccination/Date Given: Yes Hx Influenza Vaccination/Date Given: Yes Hx Pneumococcal Vaccination/Date Given: No Immunizations Up to Date: Yes - Review of Systems Constitutional: No Fever, No Chills Eyes: Photophobia Ears, Nose, & Throat: No Symptoms Respiratory: No Symptoms, No Cough, No Dyspnea Cardiac: No Symptoms, No Chest Pain, No Edema, No Syncope Abdominal/Gastrointestinal: No Abdominal Pain, No Nausea, No Vomiting, No Diarrhea Genitourinary Symptoms: No Dysuria Musculoskeletal: No Back Pain, No Neck Pain Skin: No Rash Neurological: Headache, No Dizziness, No Focal Weakness, No Sensory Changes Psychological: No Symptoms Endocrine: No Symptoms All Other Systems: Reviewed and Negative - Past Medical History Pertinent Past Medical History: Yes History: Other Psycho-Social History: Other Female Reproductive Disorders: Endometriosis 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, 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 with leslie gonzales 06/20/2016 - Past Surgical History Past Surgical History: Yes Gastrointestinal: Appendectomy Other Surgical History: laparoscopy x 4 for 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 last one nov 08, 2016 - Social History Smoking Status: Never smoker Exposure to second hand smoke: No Drug Use: none Patient Lives Alone: No - Female History Hx Last Menstrual Period: 1 WEEK - Nursing Vital Signs Nursing Vital Signs: Initial Vital Signs Temperature 98.7 F Temperature Source Oral Pulse Rate 88 Respiratory Rate 14 Blood Pressure [Right Arm] 121/76 Pain Intensity 8 - Physical Exam General Appearance: no apparent distress, alert, other (APPROPRIATE) Eye Exam: PERRL/EOMI Ears, Nose, Throat Exam: normal ENT inspection, moist mucous membranes, other ( THERE IS NO PERCUSSION TENDERNESS OVER SINUSES) Neck Exam: normal inspection, supple, full range of motion, No meningismus Respiratory Exam: normal breath sounds, lungs clear Cardiovascular Exam: regular rate/rhythm, normal heart sounds Gastrointestinal/Abdominal Exam: soft, No tenderness, No distention Mental Status Exam: alert, oriented x 3, cooperative 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 A MEDICAL SCREENING EXAM WAS OBTAINED. INFORMED THE PATIENT THAT A HEAD CT SCAN WOULD BE ORDERED ALONG WITH PHENERGAN 25MG IM, ALSO DISCUSSED THAT OPIATES WOULD NOT BE APPROPRIATE DUE TO HER FREQUENT EMERGENCY ROOM VISITS REQUESTING NARCOTICS FROM MULTIPLE HOSPITAL EMERGENCY ROOMS. THE PATIENT ALSO DROVE HERSELF HOME FROM THE HOSPITAL, AFTER SIGNING AMA. Counseled pt/family regarding: diagnosis, need for follow-up - Departure Time of Disposition: 02:30 Departure Disposition: AMA Clinical Impression: ACUTE CEPHALGIA Condition: Stable Critical Care Time: No Instructions: Headache
== END 2016-12-12 02:18 | disposition left against medical advice (07) ==
LOC: ED 01:50
DX: R51 Headache (principal); R11.2 Nausea with vomiting, unspecified; H53.8 Other visual disturbances
CPT/HCPCS: 99282

== ENCOUNTER 2016-12-14 21:20 | Emergency (ER) | payer MEDICAID ==
[2016-12-14 21:23] VITALS: BP 127/78; PULSE 83; O2SAT 100
[2016-12-14] MEDS ORDERED: TYLENOL EXTRA STRENGTH 500 MG ONE (21:33)
[2016-12-14] MEDS: TYLENOL EXTRA STRENGTH 500 MG PO ONE ×2 (21:34→21:45)
--- NOTE | 2016-12-14 21:35 | ERPHSYRPT ---
- History of Present Illness Time Seen by Provider: 12/14/16 21:32 Source: patient Exam Limitations: no limitations Physician History: 21 y/o female returns back to the ER with complaints of twisting her right ankle just prior to arrival. Pt describes the pain as sharp, constant, 10/10, worst with movement and pt has not taken any pain meds. Pt arrives crying in pain and says she can not place any weight on it. Pt mentions she shattered the ankle 3 years ago and got relief after receiving norco. Method of Injury: twisted Occurred: just prior to arrival Quality: constant Severity of Pain-Max: severe Severity of Pain-Current: severe Lower Extremities Pain: ankle: right Modifying Factors: Improves With: nothing Associated Symptoms: unable to bear weight Allergies/Adverse Reactions: metoclopramide [From Reglan] Allergy (Verified 12/14/16 21:23) Vomiting NSAIDS (Non-Steroidal Anti-Inflamma Allergy (Verified 12/14/16 21:23) anaphylaxis tramadol Allergy (Verified 12/14/16 21:23) seizures Home Medications: Hydrocodone Bit/Acetaminophen [Delong 5/325Mg] 1 each PO 12/14/16 [History] Levonorgestrel-Ethin Estradiol [Jolessa] 1 each PO DAILY 12/14/16 [History] Hx Tetanus, Diphtheria Vaccination/Date Given: Yes Hx Influenza Vaccination/Date Given: Yes Hx Pneumococcal Vaccination/Date Given: No - Review of Systems Constitutional: No Fever, No Chills Eyes: No Symptoms Ears, Nose, & Throat: No Symptoms Respiratory: No Cough, No Dyspnea Cardiac: No Chest Pain, No Edema, No Syncope Abdominal/Gastrointestinal: No Abdominal Pain, No Nausea, No Vomiting, No Diarrhea Genitourinary Symptoms: No Dysuria Musculoskeletal: Joint Pain, Joint Swelling, No Back Pain, No Neck Pain Skin: No Rash Neurological: No Dizziness, No Focal Weakness, No Sensory Changes Psychological: No Symptoms Endocrine: No Symptoms All Other Systems: Reviewed and Negative - Past Medical History Pertinent Past Medical History: Yes History: Other Psycho-Social History: Other Female Reproductive Disorders: Endometriosis 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, 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 with leslie gonzales 06/20/2016 - Past Surgical History Past Surgical History: Yes Gastrointestinal: Appendectomy Other Surgical History: laparoscopy x 4 for 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 last one nov 08, 2016 - Social History Smoking Status: Never smoker Exposure to second hand smoke: No Drug Use: none Patient Lives Alone: No - Nursing Vital Signs Nursing Vital Signs: Initial Vital Signs Temperature 97.6 F Temperature Source Oral Pulse Rate 83 Respiratory Rate 16 Blood Pressure [Right Arm] 127/78 Pain Intensity 9 - Physical Exam General Appearance: alert Eyes, Ears, Nose, Throat Exam: moist mucous membranes Neck Exam: non-tender, supple Cardiovascular/Respiratory Exam: chest non-tender, normal breath sounds, regular rate/rhythm, no respiratory distress Gastrointestinal/Abdominal Exam: non-tender, guarding Back Exam: normal inspection, No vertebral tenderness Ankle Exam: right ankle: limited range of motion, pain, soft tissue tenderness, swelling Neuro/Tendon Exam: normal sensation, normal motor functions Mental Status Exam: alert, oriented x 3, cooperative Skin Exam: normal color, warm, dry SpO2: 100 Oxygen Delivery: Room Air Ordered Tests: Active Orders 24 hr Category Date Time Status ANKLE (3 VIEWS) Stat Exams 12/14/16 21:30 Taken Medication Summary Discontinued Medications Generic Name Dose Route Start Last Admin Trade Name Jhonatan PRN Reason Stop Dose Admin Acetaminophen 1,000 mg 12/14/16 21:30 12/14/16 21:45 Tylenol Extra Strength 500 Mg PO 12/14/16 21:31 Not Given STAT ONE Acetaminophen Confirm 12/14/16 21:33 Tylenol Extra Strength 500 Mg Administered 12/14/16 21:34 Dose 1,000 mg .ROUTE .STK-MED ONE - Progress Progress: unchanged Progress Note: 12/14/16 22:44 The x ray of the ankle is within normal limits. Pt will be given crutches and deep wrap. Pt will be given a script for tylenol but no narcotics. Pt has been to the ER multiple times with various pain issues and is demonstrating narcotic seeking behavior. - Departure Time of Disposition: 22:46 Departure Disposition: Home Clinical Impression: Ankle sprain Condition: Stable Critical Care Time: No Instructions: Ankle Sprain Additional Instructions: Follow up with your primary care doctor regarding any additional pain management issues. Prescriptions: Acetaminophen [Tylenol] 650 mg PO Q6H PRN PRN #30 tablet PRN Reason: Pain
--- NOTE | 2016-12-15 08:56 | XRAY ---
Indication: Pain following twisting injury. Comparison: None 3 views of the right ankle demonstrates anterior lateral soft tissue swelling and mild widening of the talotibial joint space. Underlying ligamentous injury not completely excluded. No other bony, articular, or soft tissue abnormalities. Comment: Preliminary interpretation was made by [facility]. No discrepancy.
== END 2016-12-14 23:03 | disposition home or self-care (01) ==
LOC: ED 21:20
DX: S93.401A Sprain of unspecified ligament of right ankle, initial encounter (principal); X50.0XXA Overexertion from strenuous movement or load, initial encounter
CPT/HCPCS: 73610; 99283

== ENCOUNTER 2017-01-10 22:04 | Emergency (ER) | payer MEDICAID ==
[2017-01-10] MEDS ORDERED: Pepcid 20 MG VIAL IV ONE ×2 (22:44→22:52)
[2017-01-10] MEDS ORDERED: Sodium Chloride 0.9% 1000 ML 1,000 ML IV STA (22:44)
[2017-01-10] MEDS ORDERED: FEVERALL 650 MG PR STA (22:44)
[2017-01-10] MEDS ORDERED: Phenergan 25 MG INJ IM ONE (22:44)
--- NOTE | 2017-01-10 22:51 | ERPHSYRPT ---
- History of Present Illness Time Seen by Provider: 01/10/17 22:37 Source: patient, family () Physician History: CC: abd pain Hx: 21 y/o patient of [facility] with chronic abdominal pain. She reports prior 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 treated with valium rectal suppository. She has worsened abd pain in RUQ for the past week. Some N/V and could not take her zofran or phenergan. No fever or chills. Normal urine. LMP ended 2 days ago. Bottle feeding her baby. Timing/Duration: week(s) (1) Allergies/Adverse Reactions: metoclopramide [From Reglan] Allergy (Verified 12/14/16 21:23) Vomiting NSAIDS (Non-Steroidal Anti-Inflamma Allergy (Verified 12/14/16 21:23) anaphylaxis tramadol Allergy (Verified 12/14/16 21:23) seizures Home Medications: Hydrocodone Bit/Acetaminophen [[place] 5/325Mg] 1 each PO 12/14/16 [History] Levonorgestrel-Ethin Estradiol [Jolessa] 1 each PO DAILY 12/14/16 [History] Hx Tetanus, Diphtheria Vaccination/Date Given: Yes Hx Influenza Vaccination/Date Given: Yes Hx Pneumococcal Vaccination/Date Given: No - Review of Systems Constitutional: Malaise, No Fever, No Chills Eyes: No Symptoms Ears, Nose, & Throat: No Symptoms Respiratory: No Cough Cardiac: No Chest Pain Abdominal/Gastrointestinal: Abdominal Pain, Nausea, Vomiting, No Diarrhea Genitourinary Symptoms: No Dysuria Skin: No Rash Neurological: No Dizziness, No Focal Weakness, No Headache, No Parasthesia All Other Systems: Reviewed and Negative - Past Medical History Pertinent Past Medical History: Yes History: Other Psycho-Social History: Other Female Reproductive Disorders: Endometriosis 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, 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 with mirena -del 06/20/2016 - Past Surgical History Past Surgical History: Yes Gastrointestinal: Appendectomy Other Surgical History: laparoscopy x 4 for 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 last one nov 08, 2016 - Social History Smoking Status: Never smoker Exposure to second hand smoke: No Drug Use: none Patient Lives Alone: No - Nursing Vital Signs Nursing Vital Signs: Initial Vital Signs Temperature 98.0 F Temperature Source Oral Pulse Rate 90 Respiratory Rate 18 Blood Pressure [Right Arm] 140/76 Pain Intensity 8 - Physical Exam General Appearance: alert Eye Exam: PERRL/EOMI, No scleral icterus Ears, Nose, Throat Exam: normal ENT inspection, moist mucous membranes Neck Exam: normal inspection, non-tender, supple Respiratory Exam: normal breath sounds, lungs clear Cardiovascular Exam: regular rate/rhythm, No murmur Gastrointestinal/Abdomen Exam: soft, tenderness (right discomfort), No distention, No mass, No guarding Back Exam: normal inspection Extremity Exam: normal inspection, normal range of motion Neurologic Exam: alert, oriented x 3, cooperative, sensation nml, No motor deficits Skin Exam: warm, dry, No rash SpO2 Interpretation: normal SpO2: 100 Oxygen Delivery: Room Air - Course Nursing assessment & vital signs reviewed: Yes Ordered Tests: Active Orders 24 hr Category Date Time Status Clean Catch Urine Specimen STAT Care 01/10/17 22:44 Active IV Insertion STAT Care 01/10/17 22:44 Active CBC W DIFF Stat Lab 01/10/17 23:10 Completed CMP Stat Lab 01/10/17 23:10 Completed CULTURE,URINE Stat Lab 01/11/17 00:08 Received HCG QUALITATIVE,SERUM Stat Lab 01/10/17 23:10 Completed LIPASE Stat Lab 01/10/17 23:10 Completed UA W/ MICROSCOPIC Stat Lab 01/11/17 00:10 Completed Urine Triage Profile Stat Lab 01/10/17 22:44 Completed Medication Summary Discontinued Medications Generic Name Dose Route Start Last Admin Trade Name Freq PRN Reason Stop Dose Admin Acetaminophen 975 mg 01/10/17 22:44 01/10/17 23:[address] 01/10/17 22:45 Not Given STAT STA Acetaminophen Confirm 01/10/17 22:52 Feverall 650 Mg Administered 01/10/17 22:53 Dose 650 mg .ROUTE .STK-MED ONE Famotidine 20 mg 01/10/17 22:44 01/10/17 23:09 Pepcid 20 Mg Vial IV 01/10/17 22:45 20 mg STAT ONE Administration Famotidine Confirm 01/10/17 22:52 Pepcid 20 Mg Vial Administered 01/10/17 22:53 Dose 20 mg IV .STK-MED ONE Sodium Chloride 1,000 mls @ 999 mls/hr 01/10/17 22:44 01/10/17 23:09 Sodium Chloride 0.9% 1000 Ml IV 01/10/17 23:44 999 mls/hr .Q1H1M STA Administration Sodium Chloride Confirm 01/10/17 22:52 Sodium Chloride 0.9% 1000 Ml Administered 01/10/17 22:53 Dose 1,000 mls @ ud .ROUTE .STK-MED ONE Promethazine HCl 25 mg 01/10/17 22:44 01/10/17 23:09 Phenergan 25 Mg Inj IM 01/10/17 22:45 25 mg STAT ONE Administration Promethazine HCl Confirm 01/10/17 22:52 Phenergan 25 Mg Inj Administered 01/10/17 22:53 Dose 25 mg .ROUTE .STK-MED ONE Lab/Rad Data: Laboratory Result Diagrams 01/10/17 23:10 01/10/17 23:10 Laboratory Results 01/11/17 01/11/17 01/10/17 Range/Units 00:10 00:10 23:10 WBC (4.0-10.5) K/mm3 RBC (4.1-5.4) M/mm3 Hgb (12.0-16.0) gm/dl Hct (35-47) % MCV (78-100) fl MCH (26-32) pg MCHC (32-36) g/dl RDW (11.5-14.0) % Plt Count (150-450) K/mm3 MPV (6-9.5) fl Gran % (36.0-66.0) % Lymphocytes % (24.0-44.0) % Monocytes % (0.0-12.0) % Eosinophils % (0.00-5.0) % Basophils % (0.0-0.4) % Basophils # (0-0.4) Sodium (136-145) mEq/L Potassium (3.5-5.1) mEq/L Chloride (98-107) mEq/L Carbon Dioxide (21-32) mEq/L Anion Gap (5-15) MEQ/L BUN (9-20) mg/dL Creatinine (0.55-1.30) mg/dl Estimated GFR ML/MIN Glucose (70-110) MG/DL Calcium (8.5-10.1) mg/dL Total Bilirubin (0.2-1.0) mg/dL AST (15-37) U/L ALT (12-78) U/L Alkaline Phosphatase (46-116) U/L Serum Total Protein (6.4-8.2) gm/dL Albumin (3.4-5.0) g/dL Lipase (73-393) U/L Serum , Qual NEGATIVE (Negative) Ur Collection Type CLEAN CATCH Urine Color YELLOW (YELLOW) Urine Appearance CLOUDY (CLEAR) Urine pH 5.5 (5-6) Ur Specific [place] 1.025 (1.005-1.025) Urine Protein 30 (Negative) Urine Glucose (UA) NEGATIVE (NEGATIVE) mg/dL Urine Ketones NEGATIVE (NEGATIVE) Urine Nitrite NEGATIVE (NEGATIVE) Urine Bilirubin NEGATIVE (NEGATIVE) Urine Urobilinogen 0.2 (0-1) mg/dL Urine WBC (Auto) SMALL (NEGATIVE) Urine RBC (Auto) TRACE NON-HEM (0-5) Radu/ul Urine Microscopic RBC 0-2 (0-2) /HPF Urine Microscopic WBC 2-5 (0-5) /HPF Ur Epithelial Cells PACKED (FEW) /HPF Urine Bacteria MODERATE (NEGATIVE) /HPF Urine Mucus SLIGHT (NEGATIVE) /HPF Urine Opiates Level NEG. (NEGATIVE) Ur Methadone NEG. (NEGATIVE) Urine Barbiturates NEG. (NEGATIVE) Ur Phencyclidine (PCP) NEG. (NEGATIVE) Urine Amphetamine NEG. (NEGATIVE) U Benzodiazepine Level POS. (NEGATIVE) Urine Cocaine NEG. (NEGATIVE) Urine Marijuana (THC) POS. (NEGATIVE) Specimen Received 01/11/17:0005 01/10/17 01/10/17 Range/Units 23:10 23:10 WBC 6.1 (4.0-10.5) K/mm3 RBC 4.25 (4.1-5.4) M/mm3 Hgb 13.0 (12.0-16.0) gm/dl Hct 38.1 (35-47) % MCV 89.6 (78-100) fl MCH 30.6 (26-32) pg MCHC 34.1 (32-36) g/dl RDW 14.8 H (11.5-14.0) % Plt Count 363 (150-450) K/mm3 MPV 10.1 H (6-9.5) fl Gran % 69.0 H (36.0-66.0) % Lymphocytes % 21.2 L (24.0-44.0) % Monocytes % 9.0 (0.0-12.0) % Eosinophils % 0.5 (0.00-5.0) % Basophils % 0.3 (0.0-0.4) % Basophils # 0.02 (0-0.4) Sodium 138 (136-145) mEq/L Potassium 4.3 (3.5-5.1) mEq/L Chloride 105 (98-107) mEq/L Carbon Dioxide 21.9 (21-32) mEq/L Anion Gap 15.7 H (5-15) MEQ/L BUN 6 L (9-20) mg/dL Creatinine 0.64 (0.55-1.30) mg/dl Estimated GFR > 60 ML/MIN Glucose 104 (70-110) MG/DL Calcium 9.3 (8.5-10.1) mg/dL Total Bilirubin 0.2 (0.2-1.0) mg/dL AST 26 (15-37) U/L ALT 23 (12-78) U/L Alkaline Phosphatase 69 (46-116) U/L Serum Total Protein 8.1 (6.4-8.2) gm/dL Albumin 3.7 (3.4-5.0) g/dL Lipase 72 L (73-393) U/L Serum , Qual (Negative) Ur Collection Type Urine Color (YELLOW) Urine Appearance (CLEAR) Urine pH (5-6) Ur Specific [place] (1.005-1.025) Urine Protein (Negative) Urine Glucose (UA) (NEGATIVE) mg/dL Urine Ketones (NEGATIVE) Urine Nitrite (NEGATIVE) Urine Bilirubin (NEGATIVE) Urine Urobilinogen (0-1) mg/dL Urine WBC (Auto) (NEGATIVE) Urine RBC (Auto) (0-5) Radu/ul Urine Microscopic RBC (0-2) /HPF Urine Microscopic WBC (0-5) /HPF Ur Epithelial Cells (FEW) /HPF Urine Bacteria (NEGATIVE) /HPF Urine Mucus (NEGATIVE) /HPF Urine Opiates Level (NEGATIVE) Ur Methadone (NEGATIVE) Urine Barbiturates (NEGATIVE) Ur Phencyclidine (PCP) (NEGATIVE) Urine Amphetamine (NEGATIVE) U Benzodiazepine Level (NEGATIVE) Urine Cocaine (NEGATIVE) Urine Marijuana (THC) (NEGATIVE) Specimen Received - Progress Progress Note: 01/10/17 22:49 Explained the risk of CT to pt and . She has had 2 CT abdomen in this ER in 2 months and has also frequented other emergency departments. Abd has no guarding or mass and CT does not appear to be indicated. She also has a letter from medicaid restricting her to a primary hospital and doctor. The medicaid advised nonnarcotic treatments if indicated. 01/11/17 00:41 The patient decided against acute abdominal xray series. She also did not want APAP supp. She was given some IVF and then IV infiltrated. She is playing with her baby. Advised follow up with her primary care. Counseled pt/family regarding: lab results, diagnosis, need for follow-up - Departure Time of Disposition: 00:42 Departure Disposition: Home Clinical Impression: Chronic abdominal pain Condition: Stable Critical Care Time: No Referrals: ANDREE ACUNA MD [Primary Care Provider] - Instructions: Abdominal Pain-Adult Additional Instructions: ABDOMINAL PAIN 1. There are several different causes for abdominal pain, some of which may not be able to be identified on initial examination. 2. The important thing to remember is that bodily functions can change in a short period of time. If you notice any of the following symptoms, return to the emergency department or consult your doctor immediately: A. Worsening pain or no improvement in the next 12 hours. B. Increasing, severe abdominal pain C. Blood in stool D. Black stools E. Persistent vomiting F. Fever or chills or other symptoms No driving and stay with family tonite. Avoid marijuana use.
[2017-01-10] MEDS ORDERED: Sodium Chloride 0.9% 1000 ML 1,000 ML ONE (22:52)
[2017-01-10] MEDS ORDERED: FEVERALL 650 MG ONE (22:52)
[2017-01-10] MEDS ORDERED: Phenergan 25 MG INJ ONE (22:52)
[2017-01-10 23:14] LABS: BASOPHIL % 0.3 % (0.0-0.4); Eosinophil % 0.5 % (0.00-5.0); Lymphocytes % 21.2 % (24.0-44.0); Mean Cell Volume 89.6 fl (78-100); Mean Corpuscular Hemoglobin 30.6 pg (26-32); Mean Platelet Volume 10.1 fl (6-9.5); Platelet Count 363 K/mm3 (150-450); Red Blood Count 4.25 M/mm3 (4.1-5.4); Red Cell Distribution Width 14.8 % (11.5-14.0); White Blood Count 6.1 K/mm3 (4.0-10.5)
[2017-01-10 23:32] LABS: ALBUMIN 3.7 g/dL (3.4-5.0); ALKALINE PHOSPHATASE 69 U/L (46-116); ANION GAP 15.7 MEQ/L (5-15); BILIRUBIN,TOTAL 0.2 mg/dL (0.2-1.0); BLOOD UREA NITROGEN 6 mg/dL (9-20); CHLORIDE 105 mEq/L (98-107); Carbon Dioxide 21.9 mEq/L (21-32); Glucose 104 MG/DL (70-110); LIPASE 72 U/L (73-393); Potassium 4.3 mEq/L (3.5-5.1); SGOT/AST 26 U/L (15-37); SGPT/ALT 23 U/L (12-78); SODIUM 138 mEq/L (136-145); Total Protein 8.1 gm/dL (6.4-8.2)
[2017-01-11 00:28] LABS: Bacteria MODERATE /HPF (NEGATIVE); COMPLETE URINE MICROSCOPIC? YES; Collection Type CLEAN CATCH; Epithelial Cells PACKED /HPF (FEW); Mucus SLIGHT /HPF (NEGATIVE); Ph 5.5 (5-6)
[2017-01-11 00:42] VITALS: BP 128/74; PULSE 86; O2SAT 100
== END 2017-01-11 00:50 | disposition home or self-care (01) ==
LOC: ED 22:04
DX: R10.9 Unspecified abdominal pain (principal); G89.29 Other chronic pain; R10.11 Right upper quadrant pain; R11.2 Nausea with vomiting, unspecified
CPT/HCPCS: 36000; 36415; 80053; 80307; 81000; 83690; 84703; 85025; 87086; 96360; 96372; 96374; 99283; 99284; J2550